=== PATIENT | male | born 1980 | race Caucasian/White ===

== ENCOUNTER 2016-09-05 18:36 | Emergency (ER) | payer BC, OTHER ==
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
[2016-09-05] MEDS ORDERED: IBUPROFEN 600 MG STARTER PACK 4 TAB BTL PO STA (20:55)
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
--- NOTE | 2016-09-05 21:02 | XR ---
Cervical spine HISTORY: Trauma and pain or graph 5 views of the cervical spine No comparisons There is reversal the normal cervical lordosis. Spondylosis is present at C6 with associated loss of disc height, similar findings to lesser extent at C6-7. Cervical vertebral bodies show preserved heig ht, alignment, and bone mineralization. Prevertebral soft tissues are normal. Foramina are patent. IMPRESSION: No acute fracture or subluxation.
[2016-09-05 21:29] VITALS: BP 133/90; PULSE 85; RESP 20; TEMP 97.1
== END 2016-09-05 21:29 | disposition home or self-care (01) ==
LOC: EC 18:36
DX: S16.1XXA Strain of muscle, fascia and tendon at neck level, initial encounter (principal); S66.912A Strain of unspecified muscle, fascia and tendon at wrist and hand level, left hand, initial encounter; S66.911A Strain of unspecified muscle, fascia and tendon at wrist and hand level, right hand, initial encounter; S93.401A Sprain of unspecified ligament of right ankle, initial encounter; F17.200 Nicotine dependence, unspecified, uncomplicated; Z88.0 Allergy status to penicillin; V43.52XA Car driver injured in collision with other type car in traffic accident, initial encounter
CPT/HCPCS: 70480; 72050; 99284